=== PATIENT | female | born 1940 | race Caucasian/White ===

== ENCOUNTER 2017-01-10 12:57 | Emergency (ER) | payer OTHER, MEDICARE ==
[2017-01-10 13:06] VITALS: PULSE 71; RESP 16
--- NOTE | 2017-01-10 13:50 | EDPHY ---
H & P Stated Complaint: mechanical fall--R upper arm hit car door--then to ground Time Seen by Provider: 01/10/17 13:36 HPI/ROS: CHIEF COMPLAINT: Shoulder pain HISTORY OF PRESENT ILLNESS: The patient is a 76-year-old female who tripped coming out of the coffee store and fell hitting the top of her shoulder on the bumper of a car. She also has abrasions to both knees but denies any other injuries. Her daughter was with her and witnessed the event. She has normal movement strength and sensation in her elbow and wrist. REVIEW OF SYSTEMS: Constitutional: denies: chills, fever, recent illness, recent injury EENTM: denies: blurred vision, double vision, nose congestion Respiratory: denies: cough, shortness of breath Cardiac: denies: chest pain, irregular heart rate, lightheadedness, palpitations Gastrointestinal/Abdominal: denies: abdominal pain, diarrhea, nausea, vomiting, blood streaked stools Genitourinary: denies: dysuria, frequency, hematuria, pain Musculoskeletal: See HPI Skin: denies: lesions, rash, jaundice, bruising Neurological: denies: headache, numbness, paresthesia, tingling, dizziness, weakness Hematologic/Lymphatic: denies: blood clots, easy bleeding, easy bruising Immunologic/allergic: denies: HIV/AIDS, transplant EXAM: GENERAL: Well-appearing, well-nourished and in no acute distress. HEAD: Atraumatic, normocephalic. EYES: Pupils equal round and reactive to light, extraocular movements intact, sclera anicteric, conjunctiva are normal. ENT: TMs normal, nares patent, oropharynx clear without exudates. Moist mucous membranes. NECK: Normal range of motion, supple without lymphadenopathy or JVD. LUNGS: Breath sounds clear to auscultation bilaterally and equal. No wheezes rales or rhonchi. HEART: Regular rate and rhythm without murmurs, rubs or gallops. ABDOMEN: Soft, nontender, normoactive bowel sounds. No guarding, no rebound. No masses appreciated. BACK: No CVA tenderness, no spinal tenderness, step-offs or deformities EXTREMITIES: Right shoulder and humeral pain, normal range of motion of elbow and wrist murmur normal sensation and pulses. NEUROLOGICAL: Cranial nerves II through XII grossly intact. Normal speech, normal gait. 5/5 strength, normal movement in all extremities, normal sensation PSYCH: Normal mood, normal affect. SKIN: Abrasions both knees Source: Patient, Family Exam Limitations: No limitations - Personal History Current Tetanus/Diphtheria Vaccine: Unsure Current Tetanus Diphtheria and Acellular Pertussis (TDAP): Unsure - Medical/Surgical History Hx Asthma: No Hx Chronic Respiratory Disease: No Hx Diabetes: No Hx Cardiac Disease: No Hx Renal Disease: No Hx Cirrhosis: No Hx Alcoholism: No Hx HIV/AIDS: No Hx Splenectomy or Spleen Trauma: No Other PMH: htn - Social History Smoking Status: Never smoked Alcohol Use: Sober Drug Use: None Constitutional: Initial Vital Signs Temperature (C) 36.6 C 01/10/17 13:02 Heart Rate 71 01/10/17 13:02 Respiratory Rate 16 01/10/17 13:02 Blood Pressure 129/81 H 01/10/17 13:02 O2 Sat (%) 98 01/10/17 13:02 O2 Delivery Mode Room Air Allergies/Adverse Reactions: Sulfa (Sulfonamide Antibiotics) Allergy (Verified 01/10/17 13:02) Home Medications: Medication Instructions Recorded Hydrocodone/APAP 5/325 [[place] 1 - 2 tab PO Q4H PRN #10 tab 01/10/17 5/325 (RX)] Losartan Potassium 01/10/17 Medical Decision Making - Diagnostics Imaging Results: X-ray: Right humerus x-ray was obtained. I viewed the images myself on the PACS system. My interpretation of the images is: Humeral head fracture. The radiologist interpretation is pending. ED Course/Re-evaluation: The patient has a humeral head fracture. We will place her in a sling and treat her with pain medication and follow up with Orthopedics. She and her daughter agree with this plan. They declined further workup or testing at this time. The abrasions on her knees were cleaned and dressed as well. Differential Diagnosis: Partial list of the Differential diagnosis considered include but were not limited to; clavicle injury, humerus injury, abrasions and although unlikely based on the history and physical exam, I also considered neck injury, head injury. I discussed these differential diagnoses and the plan with the patient as well as the usual and expected course. The patient understands that the diagnosis is provisional and that in medicine we are not always correct and that further workup is often warranted. Usual and customary warnings were given. All of the patient's questions were answered. The patient was instructed to return to the emergency department should the symptoms at all worsen or return, otherwise to followup with the physician as we discussed. Departure - Departure Disposition: Home, Routine, Self-Care Clinical Impression: Fracture of humerus, right, closed Qualifiers: Encounter type: initial encounter Humerus Location: surgical neck Fracture morphology: 2-part Fracture alignment: displaced Qualified Code(s): S42.221A - 2 -part displaced fracture of surgical neck of right humerus, initial encounter for closed fracture Condition: Fair Instructions: Arm Fracture in Adults (ED) Referrals: TOMASZ HOYOS [Other] - As per Instructions Brody Wise MD [Medical Doctor] - As per Instructions Prescriptions: Hydrocodone/APAP 5/325 [[place] 5/325 (RX)] 1 - 2 tab PO Q4H PRN #10 tab PRN Reason: Pain, Moderate
[2017-01-10 14:14] VITALS: BP 179/80; TEMP 97.2; O2SAT 95
== END 2017-01-10 14:21 | disposition home or self-care (01) ==
DX: S42.221A 2-part displaced fracture of surgical neck of right humerus, initial encounter for closed fracture (principal); I10 Essential (primary) hypertension; W01.198A Fall on same level from slipping, tripping and stumbling with subsequent striking against other object, initial encounter; Y99.8 Other external cause status; Y93.89 Activity, other specified